=== PATIENT | male | born 1955 | race Caucasian/White ===

== ENCOUNTER 2021-04-18 17:49 | Inpatient (IN) | payer OTHER ==
[~2021-04-18] VITALS: Ht 177.8 cm; Wt 57.6 kg
[2021-04-18] MEDS ORDERED: ONDANSETRON 4 MG/2 ML VIAL IV ONE (18:30)
[2021-04-18] MEDS ORDERED: THIAMINE HCL 200 MG/2 ML VIAL IV ONE (18:30)
[2021-04-18] MEDS ORDERED: IV NORMAL SALINE 1000 ML BAG IV ONE (18:30)
[2021-04-18] MEDS ORDERED: FOLIC ACID 5 MG/ML VIAL IV ONE ×2 (18:30→19:29)
[2021-04-18] MEDS ORDERED: MORPHINE SULFATE 2 MG/1 ML DISP.SYRIN IV ONE (18:30)
[2021-04-18 18:40] LABS: MEAN CORPUSCULAR HEMOGLOBIN 34.2 uug (23.8-33.4); MEAN CORPUSCULAR VOLUME 99.3 fL (73.0-96.2); PLATELET COUNT (AUTO) 347 K/uL (152-348)
[2021-04-18 18:53] LABS: BILIRUBIN,DIRECT 0.3 mg/dL (0.0-0.2); BILIRUBIN,TOTAL 0.5 mg/dL (0.2-1.0); CREATININE 0.9 mg/dL (0.6-1.3); TOTAL PROTEIN, SERUM 3.9 g/dL (6.4-8.2)
[2021-04-18 18:55] LABS: POTASSIUM 2.4 mmol/L (3.5-5.1)
[2021-04-18] MEDS ORDERED: IV NORMAL SALINE 250 ML IV ONE (19:15)
[2021-04-18] MEDS ORDERED: IOHEXOL 300MG/ML 100 ML INFUS..BTL ONE (19:15)
[2021-04-18] MEDS ORDERED: SWABABLE VALVE TRANSFER SET EA MC ONE (19:15)
[2021-04-18] MEDS ORDERED: THIAMINE HCL 200 MG/2 ML VIAL ONE (19:28)
[2021-04-18] MEDS ORDERED: MORPHINE SULFATE 2 MG/1 ML DISP.SYRIN ONE (19:28)
[2021-04-18] MEDS ORDERED: ONDANSETRON 4 MG/2 ML VIAL ONE (19:28)
[2021-04-18 19:31] LABS: EOSINOPHILS % (MANUAL) 2 % (0-8); LYMPHOCYTES % (MANUAL) 12 % (20-40); MONOCYTES % (MANUAL) 19 % (2-10); NEUTROPHILS % (MANUAL) 67 % (42-75)
--- NOTE | 2021-04-18 19:33 | NUR ---
Patient out of unit for ct scan via gurny.
[2021-04-18] MEDS ORDERED: POTASSIUM CHLORIDE 50 ML IV ONE (20:00)
--- NOTE | 2021-04-18 20:04 | NUR ---
pATIENT BACK FROM CT SCAN WITH NO DISTRESS NOTED.
[2021-04-18] MEDS: MAGNESIUM SULFATE/D5W 100 ML IV SCH ×2 (21:01→22:01)
--- NOTE | 2021-04-18 21:18 | NUR ---
Paged epic panel operations lead. Waiting for Andantonio Fortune LABEL REWINDER to call back.
--- NOTE | 2021-04-18 21:24 | NUR ---
Dr. Tesfaye on panel call with Dedrick Fortune DNP.
[2021-04-18] MEDS ORDERED: ONDANSETRON 4 MG/2 ML VIAL IV PRN (21:30)
[2021-04-18] MEDS ORDERED: Z GUARD REMEDY PASTE 57 GM TUBE TOP PRN (21:30)
[2021-04-18] MEDS ORDERED: ACETAMINOPHEN 650 MG SUPP.RECT RC PRN (21:30)
[2021-04-18] MEDS ORDERED: LORAZEPAM 2 MG/1 ML VIAL IV PRN (21:30)
--- NOTE | 2021-04-18 22:04 | NUR ---
Started 2nd unit of KCL bag on right forearm
[2021-04-18 22:08] LABS: ETHANOL < 3 MG/DL (0-0)
--- NOTE | 2021-04-18 23:16 | NUR ---
2nd IVPB KCL finished (Completed). Will send 3rd and 4th bag of KCL to 3rd floor to be completed.
--- NOTE | 2021-04-18 23:25 | NUR ---
Transfered to 3rd floor Med Surg via gurny with no distress noted.
[2021-04-18 23:43] VITALS: BP 103/60
--- NOTE | 2021-04-18 23:52 | NUR ---
potassium chloride #3 bag started
[2021-04-18] MEDS: ENOXAPARIN SODIUM 40 MG/0.4 ML DISP.SYRIN SQ SCH (23:59)
--- NOTE | 2021-04-19 00:15 | NUR ---
Admitted from ER via gurthrall; IVF started and potassium IV continued from ER; seizure precaution maintained; fall prec maintained; kept NPO; continue to monitor; continue plan of care.
--- NOTE | 2021-04-19 01:00 | NUR ---
KCL bag # 4 hanged.
[2021-04-19 04:00] VITALS: BP 113/78
[2021-04-19 06:41] LABS: HEMATOCRIT 32.9 % (36.7-47.1); MEAN CORPUSCULAR HEMOGLOBIN 34.5 uug (23.8-33.4); MEAN CORPUSCULAR VOLUME 101.1 fL (73.0-96.2); PLATELET COUNT (AUTO) 352 K/uL (152-348)
[2021-04-19 06:48] LABS: NEUTROPHILS % (MANUAL) 0 % (42-75)
[2021-04-19 06:59] LABS: THYROID STIMULATING HORMONE 0.853 mIU/mL (0.358-3.740)
[2021-04-19 07:02] LABS: BILIRUBIN,TOTAL 0.4 mg/dL (0.2-1.0); CREATININE 0.7 mg/dL (0.6-1.3); MAGNESIUM 1.6 mg/dL (1.8-2.4); PHOSPHOROUS 2.4 mg/dL (2.5-4.9); POTASSIUM 2.9 mmol/L (3.5-5.1); TOTAL PROTEIN, SERUM 5.7 g/dL (6.4-8.2)
--- NOTE | 2021-04-19 07:30 | NUR ---
received patient lethargic. denies pain at the start of the shift. gretchen continue to monitor.
[2021-04-19] MEDS: POTASSIUM CHLORIDE 50 ML IV SCH ×4 (08:25→13:53)
[2021-04-19] MEDS: PANTOPRAZOLE SODIUM 40 MG VIAL IV SCH (08:25)
--- NOTE | 2021-04-19 08:45 | NUR ---
patient has no nausea/vomiting episodes. Denies nausea. Otng, POULTRY FARM MANAGER order to advance diet to clear liquids from NPO. will continue to monitor patient.
[2021-04-19] MEDS ORDERED: THIAMINE HCL INJ 100 MG in IV DEXTROSE 5% 50 ML IV SCH (09:00)
[2021-04-19] MEDS ORDERED: FOLIC ACID 1 MG in IV DEXTROSE 5% 50 ML IV SCH (09:00)
[2021-04-19] MEDS ORDERED: OMEP20CA15 PO (10:11)
[2021-04-19 11:58] VITALS: BP_SYST 106; BP_SYST 156; BP_DIAS 56; BP_DIAS 96
[2021-04-19] MEDS: MAGNESIUM SULFATE/D5W 100 ML IV SCH ×2 (12:17→14:37)
[2021-04-19] MEDS: IV NS 1000 ML 1,000 ML IV PRN ×2 (12:26)
--- NOTE | 2021-04-19 15:39 | NUR ---
Completed KCL and Mg as ordered. Patient remained in bed, no other complaints at this time. On clear liquid diet, no n/v noted.
[2021-04-19] MEDS: THIAMINE HCL 100 MG TABLET PO SCH (16:06)
[2021-04-19] MEDS: FOLIC ACID 1 MG TABLET PO SCH (16:07)
[2021-04-19] MEDS: MORPHINE SULFATE 2 MG/1 ML DISP.SYRIN IV PRN ×2 (16:09→20:13)
[2021-04-19 16:27] VITALS: BP 126/78
[2021-04-19] MEDS ORDERED: NEUTRA PHOS PACKET PO ONE (16:30)
--- NOTE | 2021-04-19 16:33 | NUR ---
SW Consult Consult was ordered for substance abuse. IVETTE was not able to see patient as he was asleep at time of visit. IVETTE knocked on door twice to greet the patient but he did not wake up. Plan: IVETTE will visit patient again tomorrow to follow up.
--- NOTE | 2021-04-19 18:43 | NUR ---
Patient requested for pain medication x1 due to back pain. He stated he feels much better compared yesterday. denies other concern at ht end of the shift. Kept call light within reach. All meds given as ordered. Kept comfortable. Will endorse to the next shift as for continuity of care.
[2021-04-19 20:00] VITALS: BP 136/90
[2021-04-19] MEDS: ENOXAPARIN SODIUM 40 MG/0.4 ML DISP.SYRIN SQ SCH (20:16)
[2021-04-20 04:00] VITALS: BP 139/75
[2021-04-20] MEDS: IV NS 1000 ML 1,000 ML IV PRN ×3 (05:29→20:49)
[2021-04-20 06:37] LABS: MEAN CORPUSCULAR HEMOGLOBIN 34.1 uug (23.8-33.4); MEAN CORPUSCULAR VOLUME 101.2 fL (73.0-96.2); PLATELET COUNT (AUTO) 393 K/uL (152-348)
[2021-04-20 06:52] LABS: CREATININE 0.7 mg/dL (0.6-1.3); MAGNESIUM 1.5 mg/dL (1.8-2.4); PHOSPHOROUS 2.7 mg/dL (2.5-4.9)
[2021-04-20 07:03] LABS: POTASSIUM 2.8 mmol/L (3.5-5.1)
[2021-04-20] MEDS: PANTOPRAZOLE SODIUM 40 MG VIAL IV SCH (08:08)
[2021-04-20] MEDS: FOLIC ACID 1 MG TABLET PO SCH (08:08)
[2021-04-20] MEDS: THIAMINE HCL 100 MG TABLET PO SCH (08:08)
[2021-04-20] MEDS ORDERED: POTASSIUM CHLORIDE 50 ML IV SCH (09:30)
[2021-04-20] MEDS ORDERED: POTASSIUM CHLORIDE 10 MEQ TAB.PRT.SR PO ONE (10:00)
[2021-04-20] MEDS: MAGNESIUM SULFATE/D5W 100 ML IV SCH ×2 (11:24→14:07)
[2021-04-20] MEDS: MORPHINE SULFATE 2 MG/1 ML DISP.SYRIN IV PRN (11:56)
[2021-04-20 12:00] VITALS: BP_SYST 135; BP_SYST 149; BP_DIAS 84; BP_DIAS 96
[2021-04-20] MEDS ORDERED: POTASSIUM CHLORIDE 20 MEQ TAB.PRT.SR PO ONE (13:00)
--- NOTE | 2021-04-20 14:33 | NUR ---
SW Consult Consult was ordered for substance use. Patient is a 65 year old white male who appears to be alert and oriented x3. Patient was able to state he was hospitalized due to pancreatitis. Patient stated that he is here visiting from [place] and will not be returning until after the holidays. Per patient, he came to the hospital after pain in his lower back and stomach. 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 Per patient, every day he drinks a pint of bourbon and stated that he wants to quit. Patient stated, I do not want to . IVETTE provided substance use services to [facility] at [address] [place] [address] , [facility] at [address] [place] [address] . IVETTE provided referrals to [facility] at [address], [address] [place], [place] [id number] , [facility] at [address] [place], [place] [id number] , and [facility] at [address] [place] [address] . [facility] ([phone]) substance abuse program was offered. IVETTE called and left a voicemail for patients, son Torsten Ortega [phone], to gather information from son as well as to gather patients daughter information per patients request. Plan: Patient will be discharged home when he is medically clear and he will follow up with substance abuse treatment.
[2021-04-20 16:00] VITALS: BP 131/78
--- NOTE | 2021-04-20 19:00 | NUR ---
PATIENT REMAINED STABLE DURING THE SHIFT. NO OTHER CONCERN IDENTIFIED. KEPT CALL LIGHT WITHIN REACH. SON CALLED FOR AN UPDATE. WILL CONTINUE PLAN OF CARE.
--- NOTE | 2021-04-20 19:09 | NUR ---
Pt AAOx4 remain at room air respirations even and unlabored patient has no nausea/vomiting episodes. Denies nausea. Tong, RETAIL FINANCIAL ANALYST order to advance diet as tolerated c/o of back pain x1 medicated with Morphine as order. will continue to monitor patient.
[2021-04-20 20:05] VITALS: BP 140/91
[2021-04-20] MEDS: ENOXAPARIN SODIUM 40 MG/0.4 ML DISP.SYRIN SQ SCH (20:43)
[2021-04-21] MEDS: MORPHINE SULFATE 2 MG/1 ML DISP.SYRIN IV PRN ×3 (03:38→20:03)
[2021-04-21] MEDS: IV NS 1000 ML 1,000 ML IV PRN ×3 (03:55→20:13)
[2021-04-21 04:05] VITALS: BP 135/81
[2021-04-21] MEDS: PANTOPRAZOLE SODIUM 40 MG TABLET.DR PO SCH (06:01)
--- NOTE | 2021-04-21 06:23 | NUR ---
THE PATIENT REQUESTED X1 PRN PAIN MEDICATION FOR HIS BACK/ABD PAIN, STATED IT WAS EFFECTIVE. ALL DUE MEDS GIVEN ORDERED. KEPT CALL LIGHT WITHIN REACH. FREQUENT CHECKS DONE. WILL ENDORSE TO THE NEXT SHIFT FOR CONTINUITY OF CARE.
[2021-04-21 06:30] LABS: MEAN CORPUSCULAR HEMOGLOBIN 34.4 uug (23.8-33.4); MEAN CORPUSCULAR VOLUME 100.8 fL (73.0-96.2); PLATELET COUNT (AUTO) 443 K/uL (152-348)
[2021-04-21 06:52] LABS: ALANINE AMINOTRANSFERASE 26 U/L (16-63); ALKALINE PHOSPHATASE 58 U/L (50-136); ASPARTATE AMINOTRANSFERASE 51 U/L (15-37); BILIRUBIN,DIRECT 0.2 mg/dL (0.0-0.2); BILIRUBIN,TOTAL 0.3 mg/dL (0.2-1.0); CARBON DIOXIDE 29 mmol/L (21-32); CHLORIDE 101 mmol/L (98-107); CREATININE 0.6 mg/dL (0.6-1.3); GLUCOSE 110 mg/dL (74-106); LIPASE 616 U/L (73-393); MAGNESIUM 1.3 mg/dL (1.8-2.4); POTASSIUM 3.2 mmol/L (3.5-5.1); TOTAL PROTEIN, SERUM 5.6 g/dL (6.4-8.2); UREA NITROGEN, BLOOD 3 mg/dL (7-18)
--- NOTE | 2021-04-21 08:30 | NUR ---
NSG; Received Pt alert and oriented x4. on room air respirations even and unlabored patient has no nausea/vomiting episodes. Denies nausea. will continue to monitor patient.
[2021-04-21] MEDS: FOLIC ACID 1 MG TABLET PO SCH (08:50)
[2021-04-21] MEDS: THIAMINE HCL 100 MG TABLET PO SCH (08:50)
[2021-04-21] MEDS ORDERED: POTASSIUM CHLORIDE 20 MEQ TAB.PRT.SR PO ONE (09:45)
[2021-04-21] MEDS: MAGNESIUM SULFATE/D5W 100 ML IV SCH ×4 (10:32→14:25)
[2021-04-21 12:00] VITALS: BP 121/82
[2021-04-21 16:00] VITALS: BP 134/79
--- NOTE | 2021-04-21 18:49 | NUR ---
NSG: PATIENT REMAIN STABLE THROUGH THE SHIFT. PAIN MED GIVEN X1 AND EFFECTIVE. NO OTHER CONCERN IDENTIFIED. KEPT CALL LIGHT WITHIN REACH. SON CALLED FOR AN UPDATE. WILL CONTINUE PLAN OF CARE.
--- NOTE | 2021-04-21 19:30 | NUR ---
Received report from day shift. Patient in bed resting comfortable. Able to make needs known. Sleeping intermittently, easily arousable. in no distress at this time.
[2021-04-21 20:00] VITALS: BP_SYST 121; BP_SYST 122; BP_DIAS 69; BP_DIAS 71
[2021-04-21] MEDS: ENOXAPARIN SODIUM 40 MG/0.4 ML DISP.SYRIN SQ SCH (20:03)
--- NOTE | 2021-04-21 20:30 | NUR ---
Patient complain of severe pain to abdomen radiation around to back. Morphine IV provided with relief, 0/10. Patient is able to tolerate PO fluids well. Left hand PIV gauge [address] and patent, tolerates NS infusion at 150ml/ hr well..
[2021-04-22] MEDS: IV NS 1000 ML 1,000 ML IV PRN ×3 (03:31→18:00)
[2021-04-22 04:00] VITALS: BP 148/87
[2021-04-22] MEDS: PANTOPRAZOLE SODIUM 40 MG TABLET.DR PO SCH (06:08)
[2021-04-22] MEDS: MORPHINE SULFATE 2 MG/1 ML DISP.SYRIN IV PRN (06:15)
--- NOTE | 2021-04-22 06:23 | NUR ---
Patient sleeping intermittently. Still noted with tolerable with pain to abdomen radiating to back. He is BRP with supervision. Poor tolerance to activity due to pain. all scheduled meds administered as ordered. Patient complain of severe pain 8/10 to abdomen and back, Morphine 2mg administered via IV at 0615, no adverse reactions. No adverse events this shift.
[2021-04-22 06:30] LABS: HEMATOCRIT 33.3 % (36.7-47.1); MEAN CORPUSCULAR VOLUME 100.2 fL (73.0-96.2); PLATELET COUNT (AUTO) 493 K/uL (152-348)
[2021-04-22 06:46] LABS: CARBON DIOXIDE 28 mmol/L (21-32); CHLORIDE 103 mmol/L (98-107); CREATININE 0.6 mg/dL (0.6-1.3); GLUCOSE 103 mg/dL (74-106); LIPASE 613 U/L (73-393); MAGNESIUM 1.5 mg/dL (1.8-2.4); POTASSIUM 3.8 mmol/L (3.5-5.1); UREA NITROGEN, BLOOD 3 mg/dL (7-18)
[2021-04-22] MEDS: THIAMINE HCL 100 MG TABLET PO SCH (08:31)
[2021-04-22] MEDS: FOLIC ACID 1 MG TABLET PO SCH (08:31)
[2021-04-22] MEDS ORDERED: MAGNESIUM OXIDE 400 MG TABLET PO ONE (10:15)
--- NOTE | 2021-04-22 11:10 | NUR ---
PT IN NO ACUTE DISTRESS. IV INTACT. PRESCRIBED MEDICATION GIVEN AND PT TOLERATED IT WELL.SAFETY AND COMFORT PROVIDED. ALL NEEDS ARE MET. WILL ENDORSE TO INCOMING NURSE FOR CONTINUITY OF CARE.
[2021-04-22 11:14] VITALS: BP 112/74
--- NOTE | 2021-04-22 11:15 | NUR ---
Received patient in bed, awake, alert, oriented x 4, not in any form of distress, on room air. He denies any pain or discomfort at this time. Peripheral IV on the left hand in place and patent, no signs of infection, with NS running 150cc/hr. Call light and frequently used items placed within patient's reach.
[2021-04-22] MEDS: HYDROCODONE/APAP 5-325MG TABLET PO PRN (15:10)
[2021-04-22 15:33] VITALS: BP 158/96
--- NOTE | 2021-04-22 17:30 | NUR ---
Received report from day shift. Awake and alert *4. Able to make needs known, is on BRP for BM and uses urinal for voiding. Patient in bed resting comfortable. IV NS running at 150ml/hr via left hand IV site.
[2021-04-22] MEDS: DIAZEPAM 5 MG TABLET PO SCH (18:02)
[2021-04-22] MEDS: ENSURE ENLIVE (VAN) 240 ML LIQUID PO SCH (18:02)
--- NOTE | 2021-04-22 18:45 | NUR ---
Patient remains alert, oriented x 4, not in any form of distress, on room air. He is compliant with medications and care. Patient complained of abdominal pain, given PRN pain medication as ordered with noted relief. Assisted with his needs promptly. Call light and frequently used items placed within reach.
[2021-04-22 20:00] VITALS: BP 121/79
[2021-04-22] MEDS: ENOXAPARIN SODIUM 40 MG/0.4 ML DISP.SYRIN SQ SCH (20:07)
[2021-04-23] MEDS: IV NS 1000 ML 1,000 ML IV PRN ×2 (01:24→08:01)
[2021-04-23 04:00] VITALS: BP 120/75
--- NOTE | 2021-04-23 06:24 | NUR ---
Patient sleeping well this shift. No complains of pain while at rest. Patient voiding well, uses urinal. Tolerates soft diet well but poor appetite noted. IV NS running at 150ml/hr via left hand IV. Tolerates well.
[2021-04-23] MEDS: PANTOPRAZOLE SODIUM 40 MG TABLET.DR PO SCH (06:34)
[2021-04-23 07:16] LABS: HEMATOCRIT 35.4 % (36.7-47.1); MEAN CORPUSCULAR HEMOGLOBIN 33.8 uug (23.8-33.4); MEAN CORPUSCULAR VOLUME 100.8 fL (73.0-96.2); PLATELET COUNT (AUTO) 565 K/uL (152-348)
--- NOTE | 2021-04-23 07:30 | NUR ---
received patient laying in bed watching tv in no apparent distress. patient is alert and able to make needs known, currently with iv to left hand in place and patent. patient w/ c/o pain requesting prn medication, offered non-pharmacologic alternatives but refused. reminded patient to use call light for help, side rails up x2.
[2021-04-23 07:41] LABS: BILIRUBIN,DIRECT 0.2 mg/dL (0.0-0.2); BILIRUBIN,TOTAL 0.4 mg/dL (0.2-1.0); CREATININE 0.7 mg/dL (0.6-1.3); POTASSIUM 3.8 mmol/L (3.5-5.1)
[2021-04-23 07:50] LABS: MAGNESIUM 1.2 mg/dL (1.8-2.4)
[2021-04-23] MEDS: DIAZEPAM 5 MG TABLET PO SCH (08:01)
[2021-04-23] MEDS: FOLIC ACID 1 MG TABLET PO SCH (08:01)
[2021-04-23] MEDS: ENSURE ENLIVE (VAN) 240 ML LIQUID PO SCH ×2 (08:02→13:00)
[2021-04-23] MEDS: HYDROCODONE/APAP 5-325MG TABLET PO PRN (08:02)
[2021-04-23] MEDS: THIAMINE HCL 100 MG TABLET PO SCH (08:02)
[2021-04-23] MEDS ORDERED: HYDR-3972 PO (09:23)
[2021-04-23] MEDS ORDERED: FOLI1TAB94 PO (09:23)
[2021-04-23] MEDS ORDERED: THIA100T74 PO (09:23)
[2021-04-23] MEDS ORDERED: MAGNESIUM SULFATE 2 GM in IV DEXTROSE 5% 100 ML IV ONE (09:30)
[2021-04-23] MEDS: MAGNESIUM SULFATE/D5W 100 ML IV SCH ×4 (09:43→13:14)
--- NOTE | 2021-04-23 09:50 | NUR ---
discharge orders, with order to replace magnesium and then discharge patient. patient is informed, states daughter can pick him up by like 1-2pm.
[2021-04-23 11:14] VITALS: BP 107/72
--- NOTE | 2021-04-23 14:00 | NUR ---
patient received 4g of magnesium and tolerated well. waiting daughter benjamín to arrive to unit to roll picker patient.
--- NOTE | 2021-04-23 15:00 | NUR ---
Discharge instructions given to patient, reminded patient to follow MD orders, reviewed new medication regimen and information regarding side effects and given to patient. patient expresses understanding. reminded to f/u with health care provider in 1-2 weeks and to avoid drinking alcohol, as well as f.u with health care provider for vaccinations if needed. inventory reviewed and signed by patient. DTR in unit at this time. patient wheeled downstairs and assisted onto Ellen's DTR private vehicle.
== END 2021-04-23 15:00 | disposition home or self-care (01) | DRG 282 ==
LOC: ER 17:57 → MEDSURG3 21:00
PROVIDERS: ADMIT Hospitalist; ATTEND Nurse Practitioner Family
DX: K85.90 Acute pancreatitis without necrosis or infection, unspecified (principal); E87.2 Acidosis; E43 Unspecified severe protein-calorie malnutrition; R64 Cachexia; E83.39 Other disorders of phosphorus metabolism; K76.0 Fatty (change of) liver, not elsewhere classified; E87.6 Hypokalemia; Z68.1 Body mass index [BMI] 19.9 or less, adult; E83.42 Hypomagnesemia; F10.10 Alcohol abuse, uncomplicated; Z86.73 Personal history of transient ischemic attack (TIA), and cerebral infarction without residual deficits; Z90.49 Acquired absence of other specified parts of digestive tract; E88.09 Other disorders of plasma-protein metabolism, not elsewhere classified; D53.9 Nutritional anemia, unspecified; Z20.822 Contact with and (suspected) exposure to COVID-19; K57.90 Diverticulosis of intestine, part unspecified, without perforation or abscess without bleeding; K76.89 Other specified diseases of liver
CPT/HCPCS: 36415; 70030-TC; 83605; 83690; 83735; 84100; 84443; 85025; 85730; 93005; C9113; G0378; G0480; J1650; J2060; J2270; J2405; J3411; J3475; J3480; J3490; J7030; J7040; J7050; J7060; Q9967